=== PATIENT | female | born 1940 | race African-American/Black ===

== ENCOUNTER 2019-07-29 13:56 | Inpatient (IN) | payer MEDICARE, MEDICAID, SELFPAY ==
--- NOTE | ~2019-07-29 | XR_ITS ---
XR chest 1V portable DATE: 07/29/2019 15:22 INDICATION: Weakness. Loss of appetite. TECHNIQUE: Portable supine AP chest on 07/29/2019 at 1517 hours COMPARISON: None FINDINGS: Heart size is within normal range. There is aortic arch calcification. There is old pulmona ry granulomatous disease. The lungs are hyperinflated suggesting COPD. The elderly chest can simulate this appearance. No pulmo nary infiltrate or consolidation, pleural effusion or pulmonary vascular congestion or pneumothorax. Incidentally noted is a fracture deformity of L1 vertebral body. Mild fracture deformities of the upp er thoracic spine are not excluded on this limited view. There is diffuse osteopenia. IMPRESSION: No active pulmonary disease Aortic atherosclerosis Diffuse osteopenia Likely chronic fracture deformity of L1; additional spinal fractures are not excluded. Reviewed, dictated and finalized at location A. IMPRESSION: No active pulmonary disease Aortic atherosclerosis Diffuse osteopenia Likely chronic fracture deformity of L1; additional spinal fractures are not ex cluded.
[2019-07-29 14:00] VITALS: BP 104/73; PULSE 130; RESP 29; TEMP 37.3; O2SAT 96
[2019-07-29] MEDS: LACTATED RINGERS 1,000 ML 999 ML (14:28)
--- NOTE | 2019-07-29 14:35 | ECG_ITS ---
Measurements Intervals [place] Rate: 112 P: 89 NM: 115 QRS: 76 QRSD: 88 T: -81 QT: 323 QTc: 441 Interpretive Statements SINUS TACHYCARDIA WITH SHORT NM INTERVAL POSSIBLE LEFT ATRIAL ENLARGEMENT LEFT VENTRICULAR HYPERTROPHY AND ST-T CHANGE ST-T WAVE ABNORMALITY IN INFERIOR LEADS- CONSIDER ISCHEMIA BASELINE WANDER- I, II, AVR, AVL, AVF, V1-V6 ABNORMAL ECG Electronically Signed On 07-29-2019 16:20:25 CDT by Adis Beavers D.O.
--- NOTE | 2019-07-29 14:36 | ED.WEAKNESS ---
HPI - Weakness General Chief complaint: Weakness Stated complaint: WEAKNESS Time Seen by Provider: 07/29/19 14:20 Source: RN notes reviewed Mode of arrival: EMS Limitations: clinical condition History of Present Illness HPI Narrative: Patient is a 79-year-old female who resides in local group home sent in for weakness. Reportedly patient has not been eating or drinking for the last few days. She is normally oriented only to self due to history of dementia. Patient reportedly is able to walk with assistance normally, but has not gotten out of bed the last few days. Nursing staff reported to emergency department nurse that patient refused to be swabbed for COVID-19, which group home is currently seeing an outbreak of cases. Patient nonverbal and not providing any history. MD Complaint: generalized weakness Location: generalized Related Data Home Medications Medication Instructions Recorded Confirmed acetaminophen 650 mg PO Q6H PRN 07/29/19 07/29/19 apixaban [Eliquis] 2.5 mg PO BID 07/29/19 07/29/19 bisacodyl 10 mg PO DAILY PRN 07/29/19 07/29/19 cholecalciferol (vitamin D3) 2,000 unit PO BID 07/29/19 07/29/19 [Vitamin D3] donepezil [Aricept] 10 mg PO HS 07/29/19 07/29/19 famotidine 20 mg PO BID 07/29/19 07/29/19 lisinopril 20 mg PO DAILY 07/29/19 07/29/19 memantine [Namenda] 10 mg PO BID 07/29/19 07/29/19 metoprolol tartrate 12.5 mg PO BID 07/29/19 07/29/19 mirtazapine 15 mg PO HS 07/29/19 07/29/19 polyethylene glycol 3350 [Miralax] 17 g PO DAILY PRN 07/29/19 07/29/19 sennosides-docusate sodium 1 tab-cap PO BID 07/29/19 07/29/19 [Senna-S] Allergies Allergy/AdvReac Type Severity Reaction Status Date / Time No Known Allergies Allergy Verified 07/29/19 14:31 Review of Systems Review of Systems: ROS unobtainable: Yes unobtainable due to mental status PMFSH Past Medical History Medical History (Updated 07/29/19 @ 20:36 by Dee Mann MD) Atrial fibrillation Dementia Depression GERD (gastroesophageal reflux disease) Hyperlipidemia Hypertension Pulmonary embolism Schizophrenia Vitamin D deficiency Family History Family History (Updated 07/29/19 @ 19:49 by Kita Hobbs RN) Other Unknown family medical history Social History Social History (Updated 07/29/19 @ 14:40 by Dee Mann MD) Smoking status: Never smoker Alcohol intake: never Substance use: never Living arrangements: group home Gender identity (if verbalized by the patient): Female Spiritual care concerns: No Agree to blood products: Yes Exam Const: General: cooperative, alert and ill appearing chronically Nutritional Appearance: thin Orientation/consciousness: confusion HENMT: Mouth: Yes dry mucous membranes (Lips cracked with crusting) Resp: Effort & Inspection: tachypneic Auscultation: clear to auscultation bilaterally Cardio: Rate: tachycardic Rhythm: regular rhythm GI: GI Palp: Yes Soft to palpation and No Tenderness to palpation present (GI) Auscultation: normal bowel sounds Skin: General skin exam: normal color and turgor decreased Neuro: General: confusion Speech: Other speech findings present (Neuro) (Nonverbal) Extrem: General: normal to inspection, full ROM and no clubbing, cyanosis or edema Psych: Appearance: disheveled Speech and movement: Catatonic speech present Attitude: cooperative Course Course Emergency Course: Patient extraordinarily dehydrated and in acute renal failure. Patient significantly hypernatremic due to dehydration. Patient tested for COVID-19 due to outbreak in group home where she resides and high likelihood this could be causing her generalized malaise and decreased appetite. Patient is not hypoxic and has no findings of pulmonary infiltrates at this time. Patient hydrated aggressively in the emergency department and IV fluids will be continued once admitted. Consultations Consultation #1: Case discussed with SHAHRZAD Bowen for
[2019-07-29 14:47] LABS: Basophils Percent Auto 0.2 % (0.2-1.2); Hematocrit 55.6 % (37.0-47.0); Hemoglobin 17.4 g/dL (12.0-15.0); Immature Granulocyte Absolute 0.08 K/mm3 (0.00-0.031); Immature Granulocyte Percent A 0.7 % (0-0.5); Lymphocytes Absolute Auto 1.13 K/mm3 (0.9-3.2); Lymphocytes Percent Auto 9.4 % (18.3-44.2); Mean Corpuscular HGB Conc 31.3 g/dl (32-36); Mean Corpuscular Hemoglobin 27.5 pg (26-34); Mean Platelet Volume 11.9 fl (7.4-10.4); Monocytes Absolute Auto 0.5 K/mm3 (0.1-0.6); Monocytes Percent Auto 4.5 % (2.6-8.5); Neutrophils Absolute Auto 10.3 K/mm3 (1.3-6.7); Neutrophils Percent Auto 85.2 % (45.5-73.1); Nucleated Red Blood Cells Perc 0.2 % (0.0-0.2); Platelet Count Result 155 k/mm3 (150-375); Red Blood Count 6.32 M/mm3 (4.2-5.4); Red Cell Distribution Width 15.3 % (11.5-14.5)
[2019-07-29 15:00] VITALS: BP 142/94; PULSE 110; RESP 23; O2SAT 97
[2019-07-29 15:02] LABS: Alanine Aminotransferase 43 U/L (4-35); Albumin Level 4.6 g/dL (3.5-5.1); Alkaline Phosphatase 119 U/L (38-126); Aspartate Amino Transferase 56 U/L (14-36); Bilirubin,Total 1.5 mg/dL (0.2-1.3); Blood Urea Nitrogen 106 mg/dL (7-17); Calcium 12.2 mg/dL (8.4-10.2); Carbon Dioxide 27 mmol/L (22-30); Chloride 120 mmol/L (98-107); Creatine Kinase 248 U/L (30-135); Estimated Glomerular Filt Rate 12; Glucose 125 mg/dL (65-105); Magnesium 3.4 mg/dL (1.6-2.3); Phosphorus 5.3 mg/dL (2.5-4.5); Potassium 3.9 mmol/L (3.4-5.0); Sodium 160 mmol/L (137-145)
[2019-07-29 15:09] LABS: Add Urine Microscopic? YES; Appearance Urine Clear (Clear); Bacteria Urine Trace /hpf; Bilirubin Urine Negative (Negative); Blood Urine Negative (Negative); Color Urine Amber (Yellow); Glucose Urine UA Negative (Negative); Ketones Urine Negative (Negative); Leukocyte Esterase Ur Negative LEU/UL (Negative); Nitrate Urine Negative (Negative); Protein Urine 2+ mg/dL (Negative); RBC Urine 0-2 /hpf (0-2); Specific Grav Ur 1.023 (1.001-1.035); Squamous Epithelial Cell Urine Rare /hpf (Few); WBC Urine 0-3 /hpf
[2019-07-29] MEDS: LACTATED RINGERS 1,000 ML 999 ML IV CONT (15:38)
[2019-07-29 16:12] VITALS: BP 198/99; PULSE 114; RESP 22; O2SAT 96
[2019-07-29 18:00] VITALS: BP 151/91; PULSE 126; RESP 22; TEMP 37; O2SAT 94
[2019-07-29] MEDS: LACTATED RINGERS 1,000 ML 125 ML IV CONT (18:16)
--- NOTE | 2019-07-29 19:57 | ADMGEN ---
This patient, Faby Garcia, was admitted to [facility] Surg Room 329-01. Patient/family oriented to hospital policies and general routines including ID bracelet, bed and alarms, visiting hours, pain management, procedures, bathroom and other care routines, personal items, smoking policy, room service/diet, and visiting hours. Valuables list has been completed. Information on how to activate the Rapid Response Team has been discussed. Patient/Family are encouraged to report perceived risks to care and to ask questions if they do not understand what they are told or what they should do.
[2019-07-29 20:00] VITALS: PULSE 120
[2019-07-29 20:00] LABS: Blood Urea Nitrogen 96 mg/dL (7-17); Calcium 11.2 mg/dL (8.4-10.2); Carbon Dioxide 33 mmol/L (22-30); Chloride 118 mmol/L (98-107); Creatine Kinase 317 U/L (30-135); Estimated Glomerular Filt Rate 23; Glucose 114 mg/dL (65-105); Potassium 3.9 mmol/L (3.4-5.0); Sodium 158 mmol/L (137-145)
[2019-07-29 22:00] VITALS: BP 154/83; PULSE 59; RESP 18; TEMP 36.8; O2SAT 98
--- NOTE | 2019-07-29 23:55 | PM.IMHP ---
H&P: HPI History of Present Illness Chief complaint: Weakness. Narrative: Faby Garcia is a 79-year-old female dementia, hypertension, GERD, and schizophrenia who presented to the emergency department earlier today via EMS from [facility] for evaluation of weakness. At the time of my evaluation the patient is asleep, and when I try to wake her she closes her eyes tightly and pulls the covers above her head. She does not answer questions nor is she cooperative with physical exam. As such, all of the following history is obtained via a review of her electronic medical records. According to the triage note, the patient has not been eating or drinking for the last several days and is not even gotten out of bed. She was found to be profoundly dehydrated with an acute kidney injury and significant hypernatremia. Currently she moans when I try to ask questions or examine her. She says no intelligible words. It is noted that she comes from a facility where there have been numerous positive COVID-19 cases. Review of Systems Review of Systems: Narrative: Unobtainable due to current clinical condition as detailed above. [facility] Past Medical History Medical History (Updated 07/30/19 @ 00:46 by Senait Ohara PA-C) Current use of [facility] anticoagulation Dementia Depression GERD (gastroesophageal reflux disease) Hearing loss Hyperlipidemia Hypertension Paroxysmal atrial fibrillation Pulmonary embolism Schizophrenia Vitamin D deficiency Surgical History Surgical History (Updated 07/30/19 @ 00:41 by Senait Ohara PA-C) No pertinent past surgical history Patient unable to tell me whether not she has had surgery, and will not allow me to examine her completely. Family History Family History Other Unknown family medical history Social History Social History (Updated 07/30/19 @ 00:42 by Senait Ohara PA-C) Social History: The patient lives at [facility]. At baseline she was reportedly alert orient x1, and is able to sit at the side of the bed and walk with assistance. She is listed as a full code. I do not have a surrogate decision maker listed. Uncertain whether not the patient has ever been a smoker, drinker, or user of illicit substances. Meds Home Medications and Allergies Home Medications Medication Instructions Recorded Confirmed Type acetaminophen 650 mg PO Q6H PRN 07/29/19 07/29/19 History apixaban [Eliquis] 2.5 mg PO BID 07/29/19 07/29/19 History bisacodyl 10 mg PO DAILY PRN 07/29/19 07/29/19 History cholecalciferol (vitamin D3) 2,000 unit PO BID 07/29/19 07/29/19 History [Vitamin D3] donepezil [Aricept] 10 mg PO HS 07/29/19 07/29/19 History famotidine 20 mg PO BID 07/29/19 07/29/19 History lisinopril 20 mg PO DAILY 07/29/19 07/29/19 History memantine [Namenda] 10 mg PO BID 07/29/19 07/29/19 History metoprolol tartrate 12.5 mg PO BID 07/29/19 07/29/19 History mirtazapine 15 mg PO HS 07/29/19 07/29/19 History polyethylene glycol 3350 [Miralax] 17 g PO DAILY PRN 07/29/19 07/29/19 History sennosides-docusate sodium 1 tab-cap PO BID 07/29/19 07/29/19 History [Senna-S] Allergies Allergy/AdvReac Type Severity Reaction Status Date / Time No Known Allergies Allergy Verified 07/29/19 14:31 Vital Signs Vital Signs - 24 hr 07/29/19 14:00 07/29/19 15:00 07/29/19 16:12 Temperature 99.2 F Pulse Rate 130 H 110 H 114 H Respiratory Rate 29 H 23 H 22 H Blood Pressure 104/73 142/94 H 198/99 H Pulse Oximetry 96 97 96 07/29/19 18:00 07/29/19 20:00 07/29/19 22:00 Temperature 98.6 F 98.2 F Pulse Rate 126 H 120 H 59 L Respiratory Rate 22 H 18 Blood Pressure 151/91 H 154/83 H Pulse Oximetry 94 98 Exam Narrative: Exam Narrative: General: Very thin frail elderly female lying in bed in the position. She pulls the cover over her head when I attempted to talk to her or examine he
[2019-07-30] VITALS (12 sets, daily range): BP systolic 116–156; BP diastolic 83–93; PULSE 90–111; RESP 16–18; TEMP 36.4–37; O2SAT 91–98; BMI 18.9
[2019-07-30 01:24] LABS: Blood Urea Nitrogen 82 mg/dL (7-17); Calcium 11.3 mg/dL (8.4-10.2); Carbon Dioxide 34 mmol/L (22-30); Chloride 120 mmol/L (98-107); Estimated Glomerular Filt Rate 28; Glucose 107 mg/dL (65-105); Potassium 3.5 mmol/L (3.4-5.0); Sodium 157 mmol/L (137-145)
[2019-07-30 01:36] LABS: Creatine Kinase 278 U/L (30-135)
[2019-07-30] MEDS: LACTATED RINGERS 1,000 ML 125 ML IV CONT ×3 (02:49→18:56)
[2019-07-30 04:49] LABS: Sodium 157 mmol/L (137-145)
[2019-07-30] MEDS: FAMOTIDINE 20 MG/2 ML VIAL IV PUSH ×2 (08:10→20:38)
[2019-07-30 14:01] LABS: SARS-CoV-2 RNA PCR Positive
--- NOTE | 2019-07-30 14:15 | PC.NURSE ---
Left voicemail for Dr. Packer that patients COVID test is positive.
--- NOTE | 2019-07-30 16:15 | PM.IMPN ---
Progress Note: A&P Assessment and Plan (1) Metabolic encephalopathy: Code(s): G93.41 - Metabolic encephalopathy Status: Acute Assessment and Plan: Appears to be multifactorial as result of COVID-19 infection, acute kidney injury with significant uremia, dehydration, renal failure with underlying dementia. Will continue to monitor mental status with treatment of other issues as noted below. (2) COVID-19 virus infection: Code(s): U07.1 - COVID-19 Status: Acute Assessment and Plan: Patient from facility with multiple positive COVID-19 residence. COVID-19 testing initiated through ER and is positive. Will continue isolation. (3) Severe dehydration: Code(s): E86.0 - Dehydration Status: Acute Assessment and Plan: Still significantly dehydrated but improving. Will continue IV fluids and monitor. (4) Acute renal failure: Qualifiers: Acute renal failure type: unspecified Qualified Code(s): N17.9 - Acute kidney failure, unspecified Code(s): N17.9 - Acute kidney failure, unspecified Status: Acute Assessment and Plan: Likely result profound dehydration. Creatinine has now improved to 2.10 having been 4.30 on admission. Will continue to monitor with rehydration. (5) Acute hypernatremia: Code(s): E87.0 - Hyperosmolality and hypernatremia Status: Acute Assessment and Plan: Result of dehydration. Slowly correcting with most recent sodium 157. Will continue to monitor. Adjust IV fluids if needed. (6) Elevated LFTs: Code(s): R79.89 - Other specified abnormal findings of blood chemistry Status: Acute Assessment and Plan: Mild elevation of LFTs on admission. Probably result also with dehydration. Will continue to follow for now. Consider further evaluation if worsening. (7) Dysphagia: Qualifiers: Dysphagia type: unspecified Qualified Code(s): R13.10 - Dysphagia, unspecified Code(s): R13.10 - Dysphagia, unspecified Status: Acute Assessment and Plan: Patient reported to have swallowing issues at shelter prior to current issues. Will attempt to get MBS when able. Will maintain NPO for now with IV fluids. (8) Dementia: Qualifiers: Dementia type: unspecified type Dementia behavioral disturbance: without behavioral disturbance Qualified Code(s): F03.90 - Unspecified dementia without behavioral disturbance Code(s): F03.90 - Unspecified dementia without behavioral disturbance Status: Acute Assessment and Plan: Known underlying condition. Home Namenda and Aricept currently on hold with mental status. Will continue to monitor. (9) Paroxysmal atrial fibrillation: Code(s): I48.0 - Paroxysmal atrial fibrillation Status: Acute Assessment and Plan: Presently in sinus rhythm. Metoprolol on hold with current condition. Apixaban on hold with current condition. Will continue to monitor clinically. (10) Hypertension: Qualifiers: Hypertension type: essential hypertension Qualified Code(s): I10 - Essential (primary) hypertension Code(s): I10 - Essential (primary) hypertension Status: Acute Assessment and Plan: Blood pressure reviewed on 07/30/2019 with mild elevation. Home metoprolol and lisinopril on hold with current status. Will have IV hydralazine available if becomes necessary. Will continue to monitor. (11) DVT prophylaxis: Code(s): Z29.9 - Encounter for prophylactic measures, unspecified Status: Acute Assessment and Plan: SCDs with home apixaban currently on hold due to mental status. Time Spent With Patient Time with patient: 15 - 25 minutes Subjective Date/time seen: 07/30/19 16:15 Interval history: Date of Service: 07/30/2019. Admitted with severe dehydration, acute renal failure, hypernatremia, encephalopathy. Patient with known dementia. Nurses report w
[2019-07-30 16:53] LABS: Basophils Percent Auto 0.3 % (0.2-1.2); Hematocrit 47.3 % (37.0-47.0); Hemoglobin 14.4 g/dL (12.0-15.0); Immature Granulocyte Percent A 0.9 % (0-0.5); Lymphocytes Absolute Auto 0.73 K/mm3 (0.9-3.2); Lymphocytes Percent Auto 6.8 % (18.3-44.2); Mean Corpuscular HGB Conc 30.4 g/dl (32-36); Mean Corpuscular Volume 88.6 fl (80-100); Mean Platelet Volume 12.1 fl (7.4-10.4); Monocytes Absolute Auto 0.7 K/mm3 (0.1-0.6); Monocytes Percent Auto 6.5 % (2.6-8.5); Neutrophils Absolute Auto 9.3 K/mm3 (1.3-6.7); Neutrophils Percent Auto 85.5 % (45.5-73.1); Platelet Count Result 100 k/mm3 (150-375); Red Blood Count 5.34 M/mm3 (4.2-5.4); Red Cell Distribution Width 13.9 % (11.5-14.5); White Blood Count 10.8 K/mm3 (4.5-10.0)
[2019-07-30 17:19] LABS: Alanine Aminotransferase 34 U/L (4-35); Albumin Level 3.5 g/dL (3.5-5.1); Alkaline Phosphatase 91 U/L (38-126); Aspartate Amino Transferase 51 U/L (14-36); Bilirubin,Total 1.3 mg/dL (0.2-1.3); Blood Urea Nitrogen 51 mg/dL (7-17); Calcium 10.3 mg/dL (8.4-10.2); Carbon Dioxide 30 mmol/L (22-30); Chloride 119 mmol/L (98-107); Creatine Kinase 246 U/L (30-135); Estimated CRCL calculation 31 ml/min; Estimated Glomerular Filt Rate > 60; Glucose 98 mg/dL (65-105); Magnesium 2.3 mg/dL (1.6-2.3); Phosphorus 2.2 mg/dL (2.5-4.5); Potassium 3.1 mmol/L (3.4-5.0); Sodium 155 mmol/L (137-145)
[2019-07-30 23:35] LABS: Sodium 152 mmol/L (137-145)
[2019-07-31] VITALS (12 sets, daily range): BP systolic 121–158; BP diastolic 57–93; PULSE 77–100; RESP 16–18; TEMP 36.2–37.1; O2SAT 91–98; BMI 18.9
[2019-07-31] MEDS: LACTATED RINGERS 1,000 ML 125 ML IV CONT ×3 (03:10→21:42)
[2019-07-31 05:59] LABS: Hematocrit 44.4 % (37.0-47.0); Hemoglobin 13.4 g/dL (12.0-15.0); Immature Platelet Fraction Pct 5.9 % (0.9-11.2); Mean Corpuscular HGB Conc 30.2 g/dl (32-36); Mean Corpuscular Hemoglobin 27.4 pg (26-34); Mean Corpuscular Volume 90.8 fl (80-100); Mean Platelet Volume 11.9 fl (7.4-10.4); Platelet Count Result 88 k/mm3 (150-375); Red Blood Count 4.89 M/mm3 (4.2-5.4); Red Cell Distribution Width 13.8 % (11.5-14.5); White Blood Count 8.6 K/mm3 (4.5-10.0)
[2019-07-31 06:32] LABS: Alanine Aminotransferase 28 U/L (4-35); Albumin Level 3.1 g/dL (3.5-5.1); Alkaline Phosphatase 76 U/L (38-126); Aspartate Amino Transferase 42 U/L (14-36); Bilirubin,Total 1.2 mg/dL (0.2-1.3); Blood Urea Nitrogen 38 mg/dL (7-17); Calcium 9.6 mg/dL (8.4-10.2); Carbon Dioxide 35 mmol/L (22-30); Chloride 115 mmol/L (98-107); Creatine Kinase 125 U/L (30-135); Estimated CRCL calculation 31 ml/min; Estimated Glomerular Filt Rate > 60; Glucose 94 mg/dL (65-105); Potassium 3.3 mmol/L (3.4-5.0); Sodium 152 mmol/L (137-145)
[2019-07-31] MEDS: FAMOTIDINE 20 MG/2 ML VIAL IV PUSH ×2 (08:40→21:42)
--- NOTE | 2019-07-31 13:43 | PM.IMPN ---
Progress Note: A&P Assessment and Plan (1) Metabolic encephalopathy: Code(s): G93.41 - Metabolic encephalopathy Status: Acute Assessment and Plan: Appears to be multifactorial as result of COVID-19 infection, acute kidney injury with significant uremia, dehydration, renal failure with underlying dementia. Patient with some improvement today. Will continue to monitor mental status with treatment of other issues as noted below. (2) COVID-19 virus infection: Code(s): U07.1 - COVID-19 Status: Acute Assessment and Plan: Patient from facility with multiple positive COVID-19 residence. COVID-19 testing initiated through ER and is positive. Will continue isolation. (3) Severe dehydration: Code(s): E86.0 - Dehydration Status: Acute Assessment and Plan: Still clinically dehydrated but improving. Will continue current IV fluids. Continue to monitor. (4) Hypokalemia: Code(s): E87.6 - Hypokalemia Status: Acute Assessment and Plan: Potassium 3.3 today with IV replacement given due to her condition. Will continue to monitor and replace as needed. (5) Acute renal failure: Qualifiers: Acute renal failure type: unspecified Qualified Code(s): N17.9 - Acute kidney failure, unspecified Code(s): N17.9 - Acute kidney failure, unspecified Status: Acute Assessment and Plan: Likely result profound dehydration. Creatinine 4.30 on admission. Now resolved with creatinine 0.90 today. Will continue to monitor with rehydration. (6) Acute hypernatremia: Code(s): E87.0 - Hyperosmolality and hypernatremia Status: Acute Assessment and Plan: Result of dehydration. Slowly correcting with most recent sodium 152. Will continue to monitor. Adjust IV fluids if becomes necessary. (7) Elevated LFTs: Code(s): R79.89 - Other specified abnormal findings of blood chemistry Status: Resolved Assessment and Plan: Mild elevation of LFTs on admission. Probably result was result of dehydration as now resolved. (8) Dysphagia: Qualifiers: Dysphagia type: unspecified Qualified Code(s): R13.10 - Dysphagia, unspecified Code(s): R13.10 - Dysphagia, unspecified Status: Acute Assessment and Plan: [facility]. Discussed with speech therapy. Due to COVID-19 infection, preference is for bedside swallow. Unable to the bedside swallow given current condition. Will leave NPO for now with IV fluids. (9) Dementia: Qualifiers: Dementia behavioral disturbance: without behavioral disturbance Dementia type: unspecified type Qualified Code(s): F03.90 - Unspecified dementia without behavioral disturbance Code(s): F03.90 - Unspecified dementia without behavioral disturbance Status: Acute Assessment and Plan: Known underlying condition. Continue to hold home Namenda and Aricept with current status. Will continue to monitor. (10) Paroxysmal atrial fibrillation: Code(s): I48.0 - Paroxysmal atrial fibrillation Status: Acute Assessment and Plan: Remains in sinus rhythm. Metoprolol on hold with current condition. Apixaban on hold with current condition. Will continue to monitor clinically. (11) Hypertension: Qualifiers: Hypertension type: essential hypertension Qualified Code(s): I10 - Essential (primary) hypertension Code(s): I10 - Essential (primary) hypertension Status: Acute Assessment and Plan: Blood pressure reviewed on 07/31/2019 with mild elevation but stable. Continue to hold metoprolol and lisinopril with current status. IV hydralazine available if becomes necessary. Will continue to monitor. (12) DVT prophylaxis: Code(s): Z29.9 - Encounter for prophylactic measures, unspecified Status: Acute Assessment and [place]
--- NOTE | 2019-07-31 14:46 | PCDIET ---
Nutrition screen for day three NPO complete: Full assessment complete Inadequate oral intake r/t swallowing dysfunction as evidence by NPO diet order Total intake will meet estimated kcal and protein needs of 1200kcals and 60g protein daily Goal:New goal MD notes attempt to do swallow study due to known dysphasia. Pt is NPO day three. Recommend starting PPN Clinimix E 4.25//5 +250 lipids at 40ml/hr day one, advancing to 80ml/hr day to provide 1153kcals and 82g protein to meet pt needs while PO intake is limited. Due to COVID19, recommend high dose Vitamin C at 100mg/kg body weight to aid in reducing inflammation and speeding recovery. Following Diet, PPN, wt, labs, meds every three days
[2019-07-31 22:28] LABS: Glucose Point of Care 78 (65-105)
[2019-08-01] VITALS (10 sets, daily range): BP systolic 122–156; BP diastolic 76–87; PULSE 85–100; RESP 16–18; TEMP 36.1–36.8; O2SAT 92–97
[2019-08-01 08:33] LABS: Blood Urea Nitrogen 23 mg/dL (7-17); Carbon Dioxide 34 mmol/L (22-30); Chloride 110 mmol/L (98-107); Estimated CRCL calculation 35 ml/min; Estimated Glomerular Filt Rate > 60; Glucose 91 mg/dL (65-105); Potassium 3.5 mmol/L (3.4-5.0); Sodium 146 mmol/L (137-145)
[2019-08-01] MEDS: LACTATED RINGERS 1,000 ML 125 ML IV CONT (09:51)
[2019-08-01] MEDS: FAMOTIDINE 20 MG/2 ML VIAL IV PUSH ×2 (09:51→22:07)
--- NOTE | 2019-08-01 13:32 | PM.IMPN ---
Progress Note: A&P Assessment and Plan (1) Metabolic encephalopathy: Code(s): G93.41 - Metabolic encephalopathy Status: Acute Assessment and Plan: Appears to be multifactorial as result of COVID-19 infection, acute kidney injury with significant uremia, dehydration, renal failure with underlying dementia. Patient seems a little more interactive today. Today I was able to speak with her daughter, Chrystal Scherer, who is her POA. Daughter reports patient generally will not even speak to family intends to be stubborn. She will otherwise indicate she understands with they are talking about. I did update daughter regarding current condition with slow but steady improvement. Bedside swallow attempted today but patient would not participate which is not unusual for patient per daughter. Will allow clear liquids. Continue to monitor. Anticipate return to [facility] at discharge. (2) COVID-19 virus infection: Code(s): U07.1 - COVID-19 Status: Acute Assessment and Plan: Patient from facility with multiple positive COVID-19 residence. COVID-19 testing initiated through ER and is positive. Will continue isolation. Continue supportive care. Remains on room air. (3) Severe dehydration: Code(s): E86.0 - Dehydration Status: Acute Assessment and Plan: Significantly improved. Will, however, continue IV fluids as not yet taking oral intake. Continue to monitor. (4) Acute hypernatremia: Code(s): E87.0 - Hyperosmolality and hypernatremia Status: Acute Assessment and Plan: Result of dehydration. Slowly correcting with sodium down to 146 today. Will continue to monitor with current IV fluids. (5) Dysphagia: Qualifiers: Dysphagia type: unspecified Qualified Code(s): R13.10 - Dysphagia, unspecified Code(s): R13.10 - Dysphagia, unspecified Status: Acute Assessment and Plan: Patient reported to have swallowing issues at skilled nursing prior to current issues per skilled nursing staff. Discussed with daughter today who reports patient was eating on her own prior to this admission. Bedside swallow attempted by speech therapy today but unsuccessful as patient would not cooperate. After discussion with daughter, will still allow clear liquids today. If she does well, will advance diet as tolerated. (6) Hypokalemia: Code(s): E87.6 - Hypokalemia Status: Acute Assessment and Plan: Potassium 3.5 today. Will continue to monitor and replace as needed. (7) Acute renal failure: Qualifiers: Acute renal failure type: unspecified Qualified Code(s): N17.9 - Acute kidney failure, unspecified Code(s): N17.9 - Acute kidney failure, unspecified Status: Acute Assessment and Plan: Likely result profound dehydration. Creatinine 4.30 on admission. Now resolved with creatinine and improved at 0.80 today. Will continue to monitor. (8) Hypertension: Qualifiers: Hypertension type: essential hypertension Qualified Code(s): I10 - Essential (primary) hypertension Code(s): I10 - Essential (primary) hypertension Status: Acute Assessment and Plan: Blood pressure reviewed on 08/01/2019 and now with mildly elevated readings. Continue to hold metoprolol and lisinopril today. If she does start taking clear liquids, may also be able to restart some of her oral medications. (9) Dementia: Qualifiers: Dementia behavioral disturbance: without behavioral disturbance Dementia type: unspecified type Qualified Code(s): F03.90 - Unspecified dementia without behavioral disturbance Code(s): F03.90 - Unspecified dementia without behavioral disturbance Status: Acute Assessment and Plan: Known underlying condition. Continue to hold home Namenda and Aricept today but hopefully will be able to resume once oral intake established. Will continue to monitor.
[2019-08-02] VITALS (7 sets, daily range): BP systolic 123–172; BP diastolic 67–96; PULSE 80–99; RESP 16–20; TEMP 36.3–37.2; O2SAT 93–97
[2019-08-02 06:39] LABS: Hematocrit 39.5 % (37.0-47.0); Hemoglobin 12.4 g/dL (12.0-15.0); Immature Platelet Fraction Pct 6.7 % (0.9-11.2); Mean Corpuscular HGB Conc 31.4 g/dl (32-36); Mean Corpuscular Hemoglobin 27.4 pg (26-34); Mean Corpuscular Volume 87.2 fl (80-100); Mean Platelet Volume 11.6 fl (7.4-10.4); Platelet Count Result 103 k/mm3 (150-375); Red Blood Count 4.53 M/mm3 (4.2-5.4); Red Cell Distribution Width 12.9 % (11.5-14.5); White Blood Count 4.9 K/mm3 (4.5-10.0)
[2019-08-02 06:42] LABS: Blood Urea Nitrogen 19 mg/dL (7-17); Calcium 8.4 mg/dL (8.4-10.2); Carbon Dioxide 27 mmol/L (22-30); Chloride 108 mmol/L (98-107); Estimated CRCL calculation 40 ml/min; Estimated Glomerular Filt Rate > 60; Glucose 77 mg/dL (65-105); Potassium 3.1 mmol/L (3.4-5.0); Sodium 142 mmol/L (137-145)
[2019-08-02] MEDS: FAMOTIDINE 20 MG/2 ML VIAL IV PUSH ×2 (08:50→22:43)
--- NOTE | 2019-08-02 15:30 | PM.IMPN ---
Progress Note: A&P Assessment and Plan (1) Metabolic encephalopathy: Code(s): G93.41 - Metabolic encephalopathy Status: Acute Assessment and Plan: Appears to be multifactorial as result of COVID-19 infection, acute kidney injury with significant uremia, dehydration, renal failure with underlying dementia. Patient more awake than on presentation but still nonverbal. Has been offered food but not eating. I was able to speak with her daughter, Chrystal Scherer, who is her POA, once again this afternoon and updated on patient condition. Daughter does report patient has ?shut down? in the past requiring feeding tube. Daughter believes she was actually hospitalized for 6 months at [facility] in order to stabilize her approximately 4 years ago when this happened. Bedside swallow test was attempted on 08/01/2019 but patient would not participate. Advanced to regular diet today in order to have more food options to see if this will help stimulate her desire to eat. Continue IV fluids for now. Will continue to monitor. Anticipate return to [facility] at discharge. (2) COVID-19 virus infection: Code(s): U07.1 - COVID-19 Status: Acute Assessment and Plan: Patient from facility with multiple positive COVID-19 residence. COVID-19 testing initiated through ER and is positive. Will continue isolation. Continue supportive care. Remains on room air. (3) Severe dehydration: Code(s): E86.0 - Dehydration Status: Acute Assessment and Plan: Improved with rehydration. Will continue IV fluids as patient not yet eating. Will monitor. (4) Acute hypernatremia: Code(s): E87.0 - Hyperosmolality and hypernatremia Status: Resolved Assessment and Plan: Now resolved with rehydration. Sodium down to 142 today. Continue IV fluids. Will continue to monitor. (5) Hypokalemia: Code(s): E87.6 - Hypokalemia Status: Acute Assessment and Plan: Potassium 3.1 today with IV replacement given. Will continue to monitor and replace as needed. (6) Dysphagia: Qualifiers: Dysphagia type: unspecified Qualified Code(s): R13.10 - Dysphagia, unspecified Code(s): R13.10 - Dysphagia, unspecified Status: Acute Assessment and Plan: Patient reported to have swallowing issues at [facility] prior to current issues per [facility] staff. Discussed with daughter on 08/01/2019 who reported patient was eating on her own prior to this admission. Bedside swallow attempted by speech therapy but unsuccessful as patient would not cooperate. Does have previous history of G-tube as noted above. Daughter would wish to consider G-tube if patient will not eat on her own. (7) Acute renal failure: Qualifiers: Acute renal failure type: unspecified Qualified Code(s): N17.9 - Acute kidney failure, unspecified Code(s): N17.9 - Acute kidney failure, unspecified Status: Resolved Assessment and Plan: Result profound dehydration. Creatinine 4.30 on admission. Remains resolved now after rehydration with creatinine 0.70 today. Will continue to monitor. (8) Hypertension: Qualifiers: Hypertension type: essential hypertension Qualified Code(s): I10 - Essential (primary) hypertension Code(s): I10 - Essential (primary) hypertension Status: Acute Assessment and Plan: Blood pressure reviewed on 08/02/2019 and stable. Continue to hold metoprolol and lisinopril with blood pressure stable and patient not taking other oral medication. Will continue to monitor. (9) Dementia: Qualifiers: Dementia behavioral disturbance: without behavioral disturbance Dementia type: unspecified type Qualified Code(s): F03.90 - Unspecified dementia without behavioral disturbance Code(s): F03.90 - Unspecified dementia without behavioral disturbance Status: Acute Assessment and Plan:
[2019-08-02] MEDS: LACTATED RINGERS 1,000 ML 125 ML IV CONT (18:44)
[2019-08-03 02:00] VITALS: BP 151/85; PULSE 95; RESP 18; TEMP 36.3; O2SAT 96
[2019-08-03 06:00] VITALS: BP 182/95; PULSE 91; RESP 18; TEMP 37.2; O2SAT 97
[2019-08-03] MEDS: hydrALAZINE HCL 20 MG/ML VIAL 10 MG IV PUSH (06:38)
[2019-08-03] MEDS: LACTATED RINGERS 1,000 ML 125 ML IV CONT (06:38)
[2019-08-03 06:39] VITALS: PULSE 91; RESP 18; O2SAT 97
[2019-08-03 07:10] LABS: Blood Urea Nitrogen 11 mg/dL (7-17); Calcium 8.5 mg/dL (8.4-10.2); Carbon Dioxide 32 mmol/L (22-30); Chloride 103 mmol/L (98-107); Estimated CRCL calculation 40 ml/min; Estimated Glomerular Filt Rate > 60; Glucose 91 mg/dL (65-105); Potassium 3.3 mmol/L (3.4-5.0); Sodium 139 mmol/L (137-145)
[2019-08-03 08:10] VITALS: PULSE 90
[2019-08-03] MEDS: FAMOTIDINE 20 MG/2 ML VIAL IV PUSH (08:10)
[2019-08-03 10:00] VITALS: BP 136/79; PULSE 107; RESP 18; TEMP 36.7; O2SAT 99
[2019-08-03 14:00] VITALS: BP 149/85; PULSE 93; RESP 18; TEMP 36.7; O2SAT 95
--- NOTE | 2019-08-03 14:32 | PM.DS ---
DS: Diagnosis Admitting Diagnosis Admitting Diagnosis: Acute kidney failure, unspecified Discharge Diagnosis (1) Metabolic encephalopathy: Code(s): G93.41 - Metabolic encephalopathy Status: Acute Assessment and Plan: Appears to be multifactorial as result of COVID-19 infection, acute kidney injury with significant uremia, dehydration, renal failure with underlying dementia. Patient more awake than on presentation but still nonverbal. Has been offered food but not eating. I was able to speak with her daughter, Chrystal Scherer, who is her POA, once again this afternoon and updated on patient condition. Daughter does report patient has ?shut down? in the past requiring feeding tube. Daughter believes she was actually hospitalized for 6 months at [facility] in order to stabilize her approximately 4 years ago when this happened. Bedside swallow test was attempted on 08/01/2019 but patient would not participate. Advanced to regular diet today in order to have more food options to see if this will help stimulate her desire to eat. Continue IV fluids for now. Will continue to monitor. Anticipate return to [facility] at discharge. (2) COVID-19 virus infection: Code(s): U07.1 - COVID-19 Status: Acute Assessment and Plan: Patient from facility with multiple positive COVID-19 residence. COVID-19 testing initiated through ER and is positive. Will continue isolation. Continue supportive care. Remains on room air. (3) Severe dehydration: Code(s): E86.0 - Dehydration Status: Acute Assessment and Plan: Improved with rehydration. Will continue IV fluids as patient not yet eating. Will monitor. (4) Acute hypernatremia: Code(s): E87.0 - Hyperosmolality and hypernatremia Status: Resolved Assessment and Plan: Now resolved with rehydration. Sodium down to 142 today. Continue IV fluids. Will continue to monitor. (5) Hypokalemia: Code(s): E87.6 - Hypokalemia Status: Acute Assessment and Plan: Potassium 3.1 today with IV replacement given. Will continue to monitor and replace as needed. (6) Dysphagia: Qualifiers: Dysphagia type: unspecified Qualified Code(s): R13.10 - Dysphagia, unspecified Code(s): R13.10 - Dysphagia, unspecified Status: Acute Assessment and Plan: Patient reported to have swallowing issues at residential prior to current issues per residential staff. Discussed with daughter on 08/01/2019 who reported patient was eating on her own prior to this admission. Bedside swallow attempted by speech therapy but unsuccessful as patient would not cooperate. Does have previous history of G-tube as noted above. Daughter would wish to consider G-tube if patient will not eat on her own. (7) Acute renal failure: Qualifiers: Acute renal failure type: unspecified Qualified Code(s): N17.9 - Acute kidney failure, unspecified Code(s): N17.9 - Acute kidney failure, unspecified Status: Resolved Assessment and Plan: Result profound dehydration. Creatinine 4.30 on admission. Remains resolved now after rehydration with creatinine 0.70 today. Will continue to monitor. (8) Hypertension: Qualifiers: Hypertension type: essential hypertension Qualified Code(s): I10 - Essential (primary) hypertension Code(s): I10 - Essential (primary) hypertension Status: Acute Assessment and Plan: Blood pressure reviewed on 08/02/2019 and stable. Continue to hold metoprolol and lisinopril with blood pressure stable and patient not taking other oral medication. Will continue to monitor. (9) Dementia: Qualifiers: Dementia type: unspecified type Dementia behavioral disturbance: without behavioral disturbance Qualified Code(s): F03.90 - Unspecified dementia without behavioral disturbance Code(s): F03.90 - Unspecified dementia witho
--- NOTE | 2019-08-03 15:39 | PCDIET ---
Nutrition Follow-Up Complete: Inadequate oral intake r/t swallowing dysfunction as evidence by NPO diet order Total intake will meet estimated kcal and protein needs of 1200kcals and 60g protein daily Goal:goal not met, continue goal Pt current nutrition is Regular Nutrition recommendation: Agree Last recorded weight is 44 kg (no new wt, recommend new wt) Bowel Motility: Labs Reviewed:William 3.3 Meds Noted:Heladio Additional Notes: Pt with only one intake at 10% today. Remeron noted. Recommend nutritional supplements for 30days after d/c due to low body wt, poor intake. Plans for d/c today.
== END 2019-08-03 17:48 | DRG 177 ==
LOC: ANHED 15:41 → ANH3MEDSUR 17:43
PROVIDERS: Hospitalist; Physician Assistant; Admitting Provider Internal Medicine; Emergency Provider Emergency Medicine; PCP Family Medicine; Visit Provider Family Medicine
DX: U07.1 COVID-19 (principal); G93.41 Metabolic encephalopathy; N17.9 Acute kidney failure, unspecified; E87.0 Hyperosmolality and hypernatremia; E86.0 Dehydration; E87.6 Hypokalemia; R13.10 Dysphagia, unspecified; F03.90 Unspecified dementia, unspecified severity, without behavioral disturbance, psychotic disturbance, mood disturbance, and anxiety; I10 Essential (primary) hypertension; I48.0 Paroxysmal atrial fibrillation; R79.89 Other specified abnormal findings of blood chemistry; K21.9 Gastro-esophageal reflux disease without esophagitis; E55.9 Vitamin D deficiency, unspecified; F20.9 Schizophrenia, unspecified; E78.5 Hyperlipidemia, unspecified; F32.9 Major depressive disorder, single episode, unspecified; Z86.711 Personal history of pulmonary embolism; Z79.01 Long term (current) use of anticoagulants
CPT/HCPCS: 36415; 51701; 71045; 80048; 80053; 81001; 82550; 83735; 84100; 84295; 85025; 85027; 85055; 87635; 92610; 93005; 96360; 99291; A9270; C9803; J0360; J3480; J7120; U0003

== ENCOUNTER 2019-08-15 15:23 | Inpatient (IN) | payer MEDICARE, MEDICAID, SELFPAY ==
[2019-08-15] VITALS (8 sets, daily range): BP systolic 128–155; BP diastolic 82–106; PULSE 106–122; RESP 16–30; TEMP 36.4–36.7; O2SAT 98–100; BMI 17.6
--- NOTE | ~2019-08-15 | XR_ITS ---
EXAMINATION: XR chest 1V portable EXAM DATE: 08/15/2019 16:20 INDICATION: Transient alteration of awareness. TECHNIQUE: Portable AP frontal chest x-ray was obtained. Comparison is made to prior examination from 07/29/2019. FINDINGS: Mild hyperinflation. Cardiomediastinal silhouette is normal. Scattered lung granulomas. The lungs are otherwise clear. There is no pneumothorax suspected. There are no pleural effusions. There is aortic arteriosclerosis. The bones are osteopenic. There are bony degenerative changes. IMPRESSION: 1. No acute cardiopulmonary findings. Reviewed, dictated and finalized at location A.
--- NOTE | 2019-08-15 15:46 | ECG_ITS ---
Measurements Intervals [place] Rate: 120 P: 92 ND: 116 QRS: 86 QRSD: 93 T: 268 QT: 321 QTc: 455 Interpretive Statements SINUS TACHYCARDIA WITH SHORT ND INTERVAL ATRIAL PREMATURE COMPLEX LEFT VENTRICULAR HYPERTROPHY AND ST-T CHANGE ST-T WAVE ABNORMALITY IN ANTEROLAT/INF LEADS- CONSIDER ISCHEMIA BASELINE WANDER- I, II, AVR, AVL, AVF, V1 ABNORMAL ECG Electronically Signed On 08-16-2019 8:04:53 CDT by Adis Beavers D.O.
--- NOTE | 2019-08-15 16:05 | ED.GENADULT ---
HPI - General Adult General Chief complaint: Unspecified Stated complaint: ams History of Present Illness HPI narrative: Patient presents via EMS from [facility]. She is noted to be COVID positive, and was admitted here couple weeks ago. She has since deteriorated, and now is not eating or drinking. Her family wants her to be full code. She is known to be deaf. Related Data Home Medications Medication Instructions Recorded Confirmed acetaminophen 650 mg PO Q6H PRN 07/29/19 07/29/19 bisacodyl 10 mg PO DAILY PRN 07/29/19 07/29/19 famotidine 20 mg PO BID 07/29/19 07/29/19 lisinopril 20 mg PO DAILY 07/29/19 07/29/19 metoprolol tartrate 12.5 mg PO BID 07/29/19 07/29/19 mirtazapine 15 mg PO HS 07/29/19 07/29/19 polyethylene glycol 3350 [Miralax] 17 g PO DAILY PRN 07/29/19 07/29/19 aspirin 81 mg PO DAILY 08/15/19 Allergies Allergy/AdvReac Type Severity Reaction Status Date / Time No Known Allergies Allergy Verified 07/29/19 14:31 Review of Systems Review of Systems: Narrative: Unable to obtain a review of systems since she does not speak. [facility] Past Medical History Medical History Current use of exterminator helper anticoagulation Dementia Depression GERD (gastroesophageal reflux disease) Hearing loss Hyperlipidemia Hypertension Paroxysmal atrial fibrillation Pulmonary embolism Schizophrenia Vitamin D deficiency Surgical History Surgical History (Updated 07/30/19 @ 00:41 by Senait Ohara PA-C) No pertinent past surgical history Patient unable to tell me whether not she has had surgery, and will not allow me to examine her completely. Social History Social History Social History: The patient lives at [facility]. At baseline she was reportedly alert orient x1, and is able to sit at the side of the bed and walk with assistance. She is listed as a full code. I do not have a surrogate decision maker listed. Uncertain whether not the patient has ever been a smoker, drinker, or user of illicit substances. Gender identity (if verbalized by the patient): Female Spiritual care concerns: No Exam Narrative: Exam Narrative: GENERAL: Cachectic. Hair knotted and tangled. bald on the top. HEAD: Normocephalic, atraumatic. EYES: Will not open her eyes ENT: Nares clear, no rhinorrhea or epistaxis. Mucous membranes dry. NECK: Supple. CHEST: Clear to auscultation. No respiratory distress. HEART: Tachycardic no murmur heard. Normal peripheral pulses. ABDOMEN: Soft, nontender, nondistended, normal active bowel sounds. Scaphoid EXTREMITIES: Normal range of motion. No edema. SKIN: Warm, dry, no rash. NEURO: No focal deficits. Responds only to moving her body. PSYCH: Flat affect no verbal response.. Course Vital Signs Vital signs: Vital Signs Temperature 98 F 08/15/19 15:15 Pulse Rate 122 H 08/15/19 15:15 Respiratory Rate 30 H 08/15/19 15:15 Blood Pressure 128/91 H 08/15/19 15:15 Pulse Oximetry 99 08/15/19 15:15 Temperature 98 F 08/15/19 15:15 Pulse Rate 116 H 08/15/19 18:06 Respiratory Rate 26 H 08/15/19 18:06 Blood Pressure 141/106 H 08/15/19 18:06 Pulse Oximetry 98 08/15/19 18:06 Medical Decision Making Vital Signs Vital Signs: Vital Signs Temperature 98 F 08/15/19 15:15 Pulse Rate 122 H 08/15/19 15:15 Respiratory Rate 30 H 08/15/19 15:15 Blood Pressure 128/91 H 08/15/19 15:15 Pulse Oximetry 99 08/15/19 15:15 Temperature 98 F 08/15/19 15:15 Pulse Rate 116 H 08/15/19 18:06 Respiratory Rate 26 H 08/15/19 18:06 Blood Pressure 141/106 H 08/15/19 18:06 Pulse Oximetry 98 08/15/19 18:06 Lab Data Result diagrams: 08/15/19 16:03 08/15/19 16:03 Labs: Lab Results 08/15/19 08/15/19 08/15/19 Range/Units 16:03 16:03 16:03 WBC 8.0 (4.5-10.0) K/mm3 RBC 6.21 H (4.2-5
[2019-08-15 16:17] LABS: Basophils Percent Auto 0.1 % (0.2-1.2); Hematocrit 55.6 % (37.0-47.0); Hemoglobin 17.1 g/dL (12.0-15.0); Immature Granulocyte Absolute 0.02 K/mm3 (0.00-0.031); Immature Granulocyte Percent A 0.2 % (0-0.5); Immature Platelet Fraction Pct 2.8 % (0.9-11.2); Lymphocytes Percent Auto 13.7 % (18.3-44.2); Mean Corpuscular HGB Conc 30.8 g/dl (32-36); Mean Corpuscular Hemoglobin 27.5 pg (26-34); Mean Corpuscular Volume 89.5 fl (80-100); Mean Platelet Volume 11.3 fl (7.4-10.4); Monocytes Absolute Auto 0.4 K/mm3 (0.1-0.6); Monocytes Percent Auto 4.5 % (2.6-8.5); Neutrophils Absolute Auto 6.5 K/mm3 (1.3-6.7); Neutrophils Percent Auto 81.5 % (45.5-73.1); Platelet Count Result 187 k/mm3 (150-375); Red Blood Count 6.21 M/mm3 (4.2-5.4); Red Cell Distribution Width 16.4 % (11.5-14.5)
[2019-08-15 16:21] LABS: Add Urine Microscopic? YES; Appearance Urine Cloudy (Clear); Bacteria Urine Trace /hpf; Bilirubin Urine 1+ (Negative); Blood Urine 2+ (Negative); Glucose Urine UA Negative (Negative); Ketones Urine Trace mg/dL (Negative); Leukocyte Esterase Ur 1+ LEU/UL (Negative); Mucus Urine Rare /lpf; Nitrate Urine Negative (Negative); Protein Urine 3+ mg/dL (Negative); RBC Urine >75 /hpf (0-2); Specific Grav Ur 1.017 (1.001-1.035); Squamous Epithelial Cell Urine Rare /hpf (Few); WBC Urine >75 /hpf
[2019-08-15 16:24] LABS: Color Urine Dark Amber (Yellow)
[2019-08-15 16:27] LABS: Alanine Aminotransferase 32 U/L (4-35); Albumin Level 4.4 g/dL (3.5-5.1); Alkaline Phosphatase 122 U/L (38-126); Aspartate Amino Transferase 41 U/L (14-36); Bilirubin,Total 2.4 mg/dL (0.2-1.3); Blood Urea Nitrogen 77 mg/dL (7-17); Carbon Dioxide 35 mmol/L (22-30); Chloride 115 mmol/L (98-107); Estimated CRCL calculation 19 ml/min; Estimated Glomerular Filt Rate 38; Glucose 123 mg/dL (65-105); Potassium 3.6 mmol/L (3.4-5.0); Sodium 159 mmol/L (137-145)
[2019-08-15] MEDS: DEXTROSE 5%/0.45% SOD CHL 1,000 ML 100 ML IV CONT (16:54)
--- NOTE | 2019-08-15 18:20 | PC.NURSE ---
This patient, Faby Bobby, was admitted to [facility] Room 330-01. Patient/family oriented to hospital policies and general routines including ID bracelet, bed and alarms, visiting hours, pain management, procedures, bathroom and other care routines, personal items, smoking policy, room service/diet, and visiting hours. Valuables list has been completed. Information on how to activate the Rapid Response Team has been discussed. Patient/Family are encouraged to report perceived risks to care and to ask questions if they do not understand what they are told or what they should do.
[2019-08-16] VITALS (12 sets, daily range): BP systolic 113–168; BP diastolic 66–82; PULSE 91–113; RESP 14–22; TEMP 36.1–36.7; O2SAT 90–97
--- NOTE | 2019-08-16 00:06 | PM.IMHP ---
H&P: HPI History of Present Illness Chief complaint: Covid-19, Hypernatremia, Dehydration, Renal Fail Narrative: Faby Bobby is a 79 year old female who [facility] The patient was admitted here on 07/29/2019 with acute hyponatremia she has a history of dementia, hypertension, and schizophrenia. She has some generalized weakness at that time. The patient had a poor appetite and had not been eating or drinking for several days. She was very dehydrated and had acute kidney injury at that time. She came from a assisted that has COVID outbreak patient was found to be COVID positive on 07/29/2019. The patient is not eating or drinking very well she is only 45 kg. She is known to be deaf. Patient remains a full code. This was discussed with the family and they still continue with the full code status. Patient was found to be dehydrated her H&H is elevated. Blood pressure is elevated as well. I am not sure if she was able to take her medications. Patient's sodium was noted to be 159. Her creatinine 1.6. No acute cardiopulmonary findings. On IV fluids. Was found have a UTI and started on Rocephin. Date of service 08/15/2019. Review of Systems Review of Systems: All systems reviewed & are unremarkable except as noted in HPI and below ROS unobtainable: Yes unobtainable due to mental status Constitutional: Constitutional: Reports as per HPI and Reports no additional constitutional complaints Eyes: Eyes: Reports as per HPI and Reports no additional eye complaints ENT: Reports system reviewed and no additional complaints, except as documented and Reports Normal hearing present Cardiovascular: Cardiovascular: Reports no additional cardiovascular complaints Respiratory: Respiratory: Reports no additional respiratory complaints and Reports no additional respiratory complaints Gastrointestinal: Gastrointestinal: Reports as per HPI and Reports no additional gastrointestinal complaints Musculoskeletal: Musculoskeletal: Reports no additional musculoskeletal complaints Integumentary/Breasts: Skin/Breast: Reports system reviewed and no additional complaints, except as docu and Reports as per HPI Neurologic: Reports system reviewed and no additional complaints, except as documented, Reports as per HPI and Reports Normal hearing present Psychiatric: Psychiatric: Reports no additional psychiatric complaints and Reports as per HPI Endocrine: Endocrine: Reports no additional endocrine complaints Hematologic/Lymphatic: Hematologic/Lymphatic: Reports no additional hematologic/lymphatic complaints Allergic/Immunologic: Allergic/Immunologic: Reports no additional allergic/immunologic complaints [facility] Past Medical History Medical History (Updated 08/16/19 @ 00:25 by Kathya Braun NP) Atrial fibrillation Paroxysmal Current use of intermediate school teacher anticoagulation Dementia Depression GERD (gastroesophageal reflux disease) Hearing loss Hyperlipidemia Hypertension Hypokalemia Paroxysmal atrial fibrillation Pulmonary embolism Schizophrenia Suspected COVID-19 virus infection Vitamin D deficiency Surgical History Surgical History No pertinent past surgical history Patient unable to tell me whether not she has had surgery, and will not allow me to examine her completely. Family History Family History Other Unknown family medical history Social History Social History Social History: The patient lives at [facility]. At baseline she was reportedly alert orient x1, and is able to sit at the side of the bed and walk with assistance. She is listed as a full code. I do not have a surrogate decision maker listed. Uncertain whether not the patient has ever been a smoker, drinker, or user of illicit substances. Smoking status:
[2019-08-16 01:46] LABS: Blood Urea Nitrogen 77 mg/dL (7-17); Calcium 10.3 mg/dL (8.4-10.2); Carbon Dioxide 33 mmol/L (22-30); Chloride 115 mmol/L (98-107); Estimated CRCL calculation 22 ml/min; Estimated Glomerular Filt Rate 53; Glucose 176 mg/dL (65-105); Potassium 3.9 mmol/L (3.4-5.0); Sodium 152 mmol/L (137-145)
[2019-08-16] MEDS: DEXTROSE 5%/0.45% SOD CHL 1,000 ML 100 ML IV CONT ×2 (03:45→17:35)
[2019-08-16 09:17] LABS: Basophils Percent Auto 0.1 % (0.2-1.2); Hematocrit 46.4 % (37.0-47.0); Hemoglobin 14.5 g/dL (12.0-15.0); Immature Granulocyte Absolute 0.06 K/mm3 (0.00-0.031); Immature Granulocyte Percent A 0.5 % (0-0.5); Immature Platelet Fraction Pct 2.7 % (0.9-11.2); Lymphocytes Percent Auto 5.5 % (18.3-44.2); Mean Corpuscular HGB Conc 31.3 g/dl (32-36); Mean Corpuscular Hemoglobin 27.7 pg (26-34); Mean Corpuscular Volume 88.7 fl (80-100); Monocytes Absolute Auto 0.5 K/mm3 (0.1-0.6); Monocytes Percent Auto 4.8 % (2.6-8.5); Neutrophils Absolute Auto 9.8 K/mm3 (1.3-6.7); Neutrophils Percent Auto 89.1 % (45.5-73.1); Nucleated Red Blood Cells Perc 0.2 % (0.0-0.2); Platelet Count Result 129 k/mm3 (150-375); Red Blood Count 5.23 M/mm3 (4.2-5.4); Red Cell Distribution Width 14.1 % (11.5-14.5)
--- NOTE | 2019-08-16 09:21 | PM.IMPN ---
Progress Note: A&P Assessment and Plan (1) UTI (urinary tract infection): Code(s): N39.0 - Urinary tract infection, site not specified Status: Acute Assessment and Plan: UA suspicious for UTI. UC and BCs pending. Possible etiology for altered mental status Continue with ceftriaxone for now Tailor antibiotics to cultures monitor for improvement in mental status (2) Hypernatremia: Code(s): E87.0 - Hyperosmolality and hypernatremia Status: Acute Assessment and Plan: Na 152; improvement with IVF. Likely due to severe dehydration. Recheck BMP tomorrow Continue with IV fluids. Monitor for improvement in mental status (3) Acute renal failure: Qualifiers: Acute renal failure type: unspecified Qualified Code(s): N17.9 - Acute kidney failure, unspecified Code(s): N17.9 - Acute kidney failure, unspecified Status: Resolved Assessment and Plan: Due to dehydration. Patient has had poor oral intake. She has end-stage dementia. Will continue IVF for rehydration recheck her renal function the morning. Discussed with daughter/TYRONE Jarrell about her status and she will be discussing with family as to what their wishes are should her condition not change or worsen in the next few days. Please see above in the HPI for details on discussion (4) Paroxysmal atrial fibrillation: Code(s): I48.0 - Paroxysmal atrial fibrillation Status: Acute Assessment and Plan: HR in 90s today. She is not on any anticoagulation. Will continue her PO metoprolol for now, but if she is not tolerating her PO meds, will consider IV lopressor if her HR increases Monitor closely; instructed nursing to inform me of any telemetry changes/increased HR (5) COVID-19 virus infection: Code(s): U07.1 - COVID-19 Status: Acute Assessment and Plan: The patient was tested at the end of last month and was found to be positive. She is currently in isolation. Satting in 90s on RA. CXR unremarkable Monitor closely Supportive care with tylenol for fevers and IVF for hydration Continue isolation (6) Dysphagia: Qualifiers: Dysphagia type: unspecified Qualified Code(s): R13.10 - Dysphagia, unspecified Code(s): R13.10 - Dysphagia, unspecified Status: Acute Assessment and Plan: Most likely related to her dementia. Patient has had tube feedings in the past and was discussed with her daughter, as above. Her bedside swallow study last admission was incomplete and was unsuccessful as the patient would not cooperate. Recommended discussing with family on how aggressive they wish to be in her further care should she not improve. She will be getting back to me on whether they decide for comfort care vs tube feedings again. She is aware of her overall declining condition. (7) Hypertension: Qualifiers: Hypertension type: essential hypertension Qualified Code(s): I10 - Essential (primary) hypertension Code(s): I10 - Essential (primary) hypertension Status: Chronic Assessment and Plan: BP 110s sys Holding lisinopril due to her acute renal failure. Continue with metoprolol if able to tolerate meds (8) Elevated LFTs: Code(s): R79.89 - Other specified abnormal findings of blood chemistry Status: Resolved Assessment and Plan: Could be related to covid 19 possibly. Bilirubin is also elevated, but improving Will continue to monitor (9) Severe dehydration: Code(s): E86.0 - Dehydration Status: Acute Assessment and Plan: Continue to hydrate the patient with IVF Encourage PO if men
[2019-08-16 09:49] LABS: Alanine Aminotransferase 24 U/L (4-35); Albumin Level 3.4 g/dL (3.5-5.1); Alkaline Phosphatase 84 U/L (38-126); Aspartate Amino Transferase 33 U/L (14-36); Bilirubin,Total 1.5 mg/dL (0.2-1.3); Blood Urea Nitrogen 67 mg/dL (7-17); CRP 0.8 mg/dL (<1.0); Calcium 9.5 mg/dL (8.4-10.2); Carbon Dioxide 26 mmol/L (22-30); Chloride 117 mmol/L (98-107); Estimated CRCL calculation 24 ml/min; Estimated Glomerular Filt Rate 58; Glucose 193 mg/dL (65-105); Lipase 286 U/L (23-300); Magnesium 2.4 mg/dL (1.6-2.3); Potassium 2.8 mmol/L (3.4-5.0); Sodium 151 mmol/L (137-145)
[2019-08-16 10:13] LABS: Thyroid Stimulating Hormone Reflex 0.637 uIU/mL (0.465-4.68)
[2019-08-16 16:07] LABS: Glucose Point of Care 219 (65-105)
[2019-08-16 16:07] LABS: Glucose Point of Care 164 (65-105)
[2019-08-16 17:23] LABS: Glucose Point of Care 191 (65-105)
[2019-08-16 22:01] LABS: Glucose Point of Care 128 (65-105)
[2019-08-17] VITALS (11 sets, daily range): BP systolic 120–168; BP diastolic 77–87; PULSE 75–102; RESP 20–22; TEMP 36.5–36.9; O2SAT 92–97; BMI 17.6
[2019-08-17] MEDS: DEXTROSE 5%/0.45% SOD CHL 1,000 ML 100 ML IV CONT (05:09)
[2019-08-17 05:51] LABS: Glucose Point of Care 118 (65-105)
[2019-08-17 08:33] LABS: Basophils Percent Auto 0.2 % (0.2-1.2); Hematocrit 40.4 % (37.0-47.0); Hemoglobin 12.9 g/dL (12.0-15.0); Immature Granulocyte Percent A 0.6 % (0-0.5); Immature Platelet Fraction Pct 3.8 % (0.9-11.2); Lymphocytes Absolute Auto 1.01 K/mm3 (0.9-3.2); Lymphocytes Percent Auto 6.4 % (18.3-44.2); Mean Corpuscular HGB Conc 31.9 g/dl (32-36); Mean Corpuscular Hemoglobin 28.2 pg (26-34); Mean Corpuscular Volume 88.2 fl (80-100); Mean Platelet Volume 11.4 fl (7.4-10.4); Monocytes Absolute Auto 0.3 K/mm3 (0.1-0.6); Monocytes Percent Auto 2.1 % (2.6-8.5); Neutrophils Absolute Auto 14.4 K/mm3 (1.3-6.7); Neutrophils Percent Auto 90.7 % (45.5-73.1); Nucleated Red Blood Cells Perc 0.2 % (0.0-0.2); Platelet Count Result 94 k/mm3 (150-375); Red Blood Count 4.58 M/mm3 (4.2-5.4); Red Cell Distribution Width 14.1 % (11.5-14.5); White Blood Count 15.8 K/mm3 (4.5-10.0)
[2019-08-17 08:57] LABS: Alanine Aminotransferase 31 U/L (4-35); Alkaline Phosphatase 81 U/L (38-126); Aspartate Amino Transferase 40 U/L (14-36); Bilirubin,Total 1.1 mg/dL (0.2-1.3); Blood Urea Nitrogen 36 mg/dL (7-17); Calcium 9.1 mg/dL (8.4-10.2); Carbon Dioxide 26 mmol/L (22-30); Chloride 114 mmol/L (98-107); Estimated CRCL calculation 33 ml/min; Estimated Glomerular Filt Rate > 60; Glucose 131 mg/dL (65-105); Potassium 3.2 mmol/L (3.4-5.0); Sodium 146 mmol/L (137-145)
[2019-08-17 09:40] LABS: Glucose Point of Care 129 (65-105)
--- NOTE | 2019-08-17 12:17 | PM.IMPN ---
Progress Note: A&P Assessment and Plan (1) UTI (urinary tract infection): Code(s): N39.0 - Urinary tract infection, site not specified Status: Ruled-out Assessment and Plan: UA suspicious for UTI, although UC showed growth of skin contaminates. BC negative to date x 2. UTI unlikely given UC results Will d/c Rocephin, although continue IVF monitor for improvement in mental status (2) Hypernatremia: Code(s): E87.0 - Hyperosmolality and hypernatremia Status: Acute Assessment and Plan: Na 146; improvement with IVF. Likely due to severe dehydration. Recheck BMP tomorrow if still able to draw labs Continue with IV fluids. Monitor for improvement in mental status (3) Acute renal failure: Qualifiers: Acute renal failure type: unspecified Qualified Code(s): N17.9 - Acute kidney failure, unspecified Code(s): N17.9 - Acute kidney failure, unspecified Status: Resolved Assessment and Plan: Due to dehydration. Cr now to 0.80 this morning; appears to have resolved/resolving. Patient has had poor oral intake. She has end-stage dementia and is PLATINUM Will continue IVF for rehydration recheck her renal function the morning. (4) Paroxysmal atrial fibrillation: Code(s): I48.0 - Paroxysmal atrial fibrillation Status: Acute Assessment and Plan: HR low 100s today. She is not on any anticoagulation. Will continue her PO metoprolol for now, but if she is not tolerating her PO meds, will consider IV lopressor if her HR increases Monitor closely; instructed nursing to inform me of any telemetry changes/increased HR (5) COVID-19 virus infection: Code(s): U07.1 - COVID-19 Status: Acute Assessment and Plan: The patient was tested at the end of last month and was found to be positive. She is currently in isolation. Satting in 90s on RA. CXR unremarkable Monitor closely Supportive care with tylenol for fevers and IVF for hydration Continue isolation (6) Dysphagia: Qualifiers: Dysphagia type: unspecified Qualified Code(s): R13.10 - Dysphagia, unspecified Code(s): R13.10 - Dysphagia, unspecified Status: Acute Assessment and Plan: Most likely related to her dementia. Patient has had tube feedings in the past and was discussed with her daughter, as above. Her bedside swallow study last admission was incomplete and was unsuccessful as the patient would not cooperate. Recommended discussing with family on how aggressive they wish to be in her further care should she not improve. She will be getting back to me on whether they decide for comfort care vs tube feedings again. She is aware of her overall declining condition. (7) Hypertension: Qualifiers: Hypertension type: essential hypertension Qualified Code(s): I10 - Essential (primary) hypertension Code(s): I10 - Essential (primary) hypertension Status: Chronic Assessment and Plan: BP 120s sys Holding lisinopril due to her acute renal failure. Continue with metoprolol if able to tolerate meds (8) Elevated LFTs: Code(s): R79.89 - Other specified abnormal findings of blood chemistry Status: Resolved Assessment and Plan: Could be related to covid 19 possibly. AST 40. Of note, Bilirubin now WNL Will continue to monitor (9) Severe dehydration: Code(s): E86.0 - Dehydration Status: Acute Assessment and Plan: Continue to hydrate the patient with IVF Encourage PO if mental status improves (10) Dementia: Qualifiers: Dementia type: unspecifi
[2019-08-17 14:00] LABS: Glucose Point of Care 131 (65-105)
--- NOTE | 2019-08-17 16:07 | PM.DS ---
DS: Diagnosis Admitting Diagnosis Admitting Diagnosis: Urinary tract infection, site not specified Discharge Diagnosis (1) Dysphagia: Qualifiers: Dysphagia type: unspecified Qualified Code(s): R13.10 - Dysphagia, unspecified Code(s): R13.10 - Dysphagia, unspecified Status: Acute Assessment and Plan: Most likely related to her dementia. Patient has had tube feedings in the past and was discussed with her daughter, as above. Her bedside swallow study last admission was incomplete and was unsuccessful as the patient would not cooperate. Recommended discussing with family on how aggressive they wish to be in her further care should she not improve. She will be getting back to me on whether they decide for comfort care vs tube feedings again. She is aware of her overall declining condition. Update Family wished to proceed with hospice. Patient placed on DNR status and [facility] and plan will be to discharge to inpatient hospice under their service. Consents signed this afternoon. (2) Acute renal failure: Qualifiers: Acute renal failure type: unspecified Qualified Code(s): N17.9 - Acute kidney failure, unspecified Code(s): N17.9 - Acute kidney failure, unspecified Status: Resolved Assessment and Plan: Due to dehydration. Cr now to 0.80 this morning; appears to have resolved/resolving. Patient has had poor oral intake. She has end-stage dementia and is WILTON Will continue IVF for rehydration recheck her renal function the morning. (3) Hypernatremia: Code(s): E87.0 - Hyperosmolality and hypernatremia Status: Acute Assessment and Plan: Na 146; improvement with IVF. Likely due to severe dehydration. Recheck BMP tomorrow if still able to draw labs Continue with IV fluids. Monitor for improvement in mental status (4) UTI (urinary tract infection): Code(s): N39.0 - Urinary tract infection, site not specified Status: Ruled-out Assessment and Plan: UA suspicious for UTI, although UC showed growth of skin contaminates. BC negative to date x 2. UTI unlikely given UC results Will d/c Rocephin, although continue IVF monitor for improvement in mental status (5) Paroxysmal atrial fibrillation: Code(s): I48.0 - Paroxysmal atrial fibrillation Status: Acute Assessment and Plan: HR low 100s today. She is not on any anticoagulation. Will continue her PO metoprolol for now, but if she is not tolerating her PO meds, will consider IV lopressor if her HR increases Monitor closely; instructed nursing to inform me of any telemetry changes/increased HR (6) COVID-19 virus infection: Code(s): U07.1 - COVID-19 Status: Acute Assessment and Plan: The patient was tested at the end of last month and was found to be positive. She is currently in isolation. Satting in 90s on RA. CXR unremarkable Monitor closely Supportive care with tylenol for fevers and IVF for hydration Continue isolation (7) Hypertension: Qualifiers: Hypertension type: essential hypertension Qualified Code(s): I10 - Essential (primary) hypertension Code(s): I10 - Essential (primary) hypertension Status: Chronic Assessment and Plan: BP 120s sys Holding lisinopril due to her acute renal failure. Continue with metoprolol if able to tolerate meds (8) Elevated LFTs: Code(s): R79.89 - Other specified abnormal findings of blood chemistry Status: Resolved Assessment and Plan: Could be related to covid 19 possibly. AST 40. Of note, Bilirubin now WNL Will continue to monitor
== END 2019-08-17 20:08 | disposition hospice, inpatient (51) | DRG 178 ==
LOC: ANHED 17:59 → ANH3MEDSUR 19:42
PROVIDERS: Nurse Practitioner; Admitting Provider Hospitalist; Emergency Provider Emergency Medicine; PCP Family Medicine; Visit Provider Physician Assistant
DX: U07.1 COVID-19 (principal); N17.9 Acute kidney failure, unspecified; E87.0 Hyperosmolality and hypernatremia; R64 Cachexia; Z68.1 Body mass index [BMI] 19.9 or less, adult; E86.0 Dehydration; I48.0 Paroxysmal atrial fibrillation; F03.90 Unspecified dementia, unspecified severity, without behavioral disturbance, psychotic disturbance, mood disturbance, and anxiety; F32.9 Major depressive disorder, single episode, unspecified; K21.9 Gastro-esophageal reflux disease without esophagitis; E78.5 Hyperlipidemia, unspecified; I10 Essential (primary) hypertension; E55.9 Vitamin D deficiency, unspecified; E87.6 Hypokalemia; F20.9 Schizophrenia, unspecified; D75.1 Secondary polycythemia; R13.19 Other dysphagia; H91.93 Unspecified hearing loss, bilateral; Z86.711 Personal history of pulmonary embolism; Z79.01 Long term (current) use of anticoagulants; R79.89 Other specified abnormal findings of blood chemistry
CPT/HCPCS: 36415; 36569; 51701; 71045; 80048; 80053; 81001; 83690; 83735; 84443; 85025; 85055; 86140; 87040; 87077; 87086; 87088; 93005; 96365; 99285; A9270; C1751; J0696; J3480

== ENCOUNTER 2019-08-17 20:16 | HOS | payer OTHER, MEDICARE, MEDICAID, SELFPAY ==
[2019-08-17 22:00] VITALS: BP 148/90; PULSE 110; RESP 18; TEMP 37.1; O2SAT 94
[2019-08-18] VITALS: BMI 17.6
--- NOTE | 2019-08-18 01:48 | ADMGEN ---
This patient, Faby Bobby, was admitted to [facility] Surg Room 330-01. Patient/family oriented to hospital policies and general routines including ID bracelet, bed and alarms, visiting hours, pain management, procedures, bathroom and other care routines, personal items, smoking policy, room service/diet, and visiting hours. Valuables list has been completed. Information on how to activate the Rapid Response Team has been discussed. Patient/Family are encouraged to report perceived risks to care and to ask questions if they do not understand what they are told or what they should do. Admitted for hospice care.
[2019-08-18 08:00] VITALS: BP 118/60; PULSE 93; RESP 18; TEMP 36.4; O2SAT 93
--- NOTE | 2019-08-18 11:54 | PM.IMHP ---
H&P: HPI History of Present Illness Chief complaint: Hospice Narrative: Faby Bobby is a 79 year old female longterm resident. Due to COVID-19 pneumonia she was admitted as and her son hospital 08/15. She was dehydrated with severe hypernatremia. In spite of empiric antibiotics IV fluids and supportive care she did not improved. She remained minimally responsive and was unable to eat or drink more than a tiny amount. At baseline she was able to walk short distances with a walker with assistance. Currently she is bed-bound and minimally responsive. She is blind and deaf. Her family opted to transition to comfort care with inpatient hospice on 08/16. Review of Systems Review of Systems: ROS unobtainable: Yes unobtainable due to medical condition PMFSH Past Medical History Medical History Atrial fibrillation Paroxysmal Current use of [facility] anticoagulation Dementia Depression GERD (gastroesophageal reflux disease) Hearing loss Hyperlipidemia Hypertension Hypokalemia Paroxysmal atrial fibrillation Pulmonary embolism Schizophrenia Suspected COVID-19 virus infection Vitamin D deficiency Surgical History Surgical History No pertinent past surgical history Patient unable to tell me whether not she has had surgery, and will not allow me to examine her completely. Family History Family History (Updated 08/18/19 @ 17:54 by Lopez Pena MD) Father No problems noted. Mother No problems noted. Other Unknown family medical history Social History Social History (Updated 08/18/19 @ 17:56 by Lopez Pena MD) Social History: The patient lives at [facility]. Unknown whether not the patient has ever been a smoker, drinker, or user of illicit substances. Smoking status: Unknown if ever smoked Alcohol intake: never Substance use: never Living arrangements: longterm Occupation/Education: retired Gender identity (if verbalized by the patient): Female Spiritual care concerns: No Meds Home Medications and Allergies Allergies Allergy/AdvReac Type Severity Reaction Status Date / Time No Known Allergies Allergy Verified 07/29/19 14:31 Vital Signs Vital Signs - 24 hr 08/17/19 22:00 Temperature 98.8 F Pulse Rate 110 H Respiratory Rate 18 Blood Pressure 148/90 H Pulse Oximetry 94 Exam Narrative: Exam Narrative: Frail elderly female lying in her hospital bed in no apparent distress Pupils round minimally reactive to light and equal. Sclera nonicteric. Oral mucosa somewhat dry. Neck no JVD. Chest with diminished breath sounds and scattered rhonchi Heart normal S1 and S2 with regular rate Extremities no edema cyanosis or clubbing Abdomen scaphoid with hypoactive bowel sounds soft and nontender Musculoskeletal with diffuse muscle wasting and generalized weakness but without gross deformity Cranial nerves without asymmetry to inspection Psychiatric she response to touch but not to sound or visual stimuli Assessment and Plan Assessment and plan (1) Palliative care by specialist: Code(s): Z51.5 - Encounter for palliative care Status: Acute Assessment and Plan: Requires general inpatient status due to uncontrolled dyspnea and restlessness requiring IV medication Continuous IV morphine Additional p.r.n. palliative medications as ordered Monitor symptoms and titrate to comfort (2) COVID-19 virus infection: Code(s): U07.1 - COVID-19 Status: Acute (3) Dysphagia: Qualifiers: Dysphagia type: unspecified Qualified Code(s): R13.10 - Dysphagia, unspecified Code(s): R13.10 - Dysphagia, unspecified Status: Acute (4) Acute renal failure: Qualifiers: Acute renal failure type: unspecified Qualified Code(s): N17.9 - Acute kidney failure, unspecified
--- NOTE | 2019-08-18 16:41 | PCDIET ---
Low BMI nutritional screen. Patient on appropriate diet, regular, and hospice status. No nutritional intervention needed at this time due to hospice unless requested.
[2019-08-18 22:00] VITALS: BP 135/76; PULSE 98; RESP 16; TEMP 36.8; O2SAT 94
[2019-08-19 10:00] VITALS: BP 157/88; PULSE 95; RESP 12; TEMP 36.3; O2SAT 97
--- NOTE | 2019-08-19 16:19 | PM.IMPN ---
Progress Note: A&P Assessment and Plan (1) Palliative care by specialist: Code(s): Z51.5 - Encounter for palliative care Status: Acute Assessment and Plan: Requires general inpatient status due to dyspnea and restlessness that require continuous IV medication for control Continuius IV morphine Additional p.r.n. palliative medications as ordered Monitor symptoms and titrate to comfort (2) COVID-19 virus infection: Code(s): U07.1 - COVID-19 Status: Acute (3) Dysphagia: Qualifiers: Dysphagia type: unspecified Qualified Code(s): R13.10 - Dysphagia, unspecified Code(s): R13.10 - Dysphagia, unspecified Status: Acute (4) Acute renal failure: Qualifiers: Acute renal failure type: unspecified Qualified Code(s): N17.9 - Acute kidney failure, unspecified Code(s): N17.9 - Acute kidney failure, unspecified Status: Acute (5) Hypernatremia: Code(s): E87.0 - Hyperosmolality and hypernatremia Status: Acute (6) Elevated LFTs: Code(s): R79.89 - Other specified abnormal findings of blood chemistry Status: Resolved (7) Paroxysmal atrial fibrillation: Code(s): I48.0 - Paroxysmal atrial fibrillation Status: Acute (8) Dementia: Qualifiers: Dementia type: unspecified type Dementia behavioral disturbance: without behavioral disturbance Qualified Code(s): F03.90 - Unspecified dementia without behavioral disturbance Code(s): F03.90 - Unspecified dementia without behavioral disturbance Status: Chronic (9) Hypertension: Qualifiers: Hypertension type: essential hypertension Qualified Code(s): I10 - Essential (primary) hypertension Code(s): I10 - Essential (primary) hypertension Status: Chronic Subjective Date/time seen: 08/19/19 11:45 Interval history: Nonverbal. Responds only to touch Review of Systems Review of Systems: ROS unobtainable: Yes unobtainable due to medical condition Exam Narrative: Exam Narrative: Frail elderly female lying in her hospital bed in no apparent distress Pupils round minimally reactive to light and equal. Sclera nonicteric. Oral mucosa somewhat dry. Neck no JVD. Chest with diminished breath sounds and scattered rhonchi Heart normal S1 and S2 with regular rate Extremities no edema cyanosis or clubbing Abdomen scaphoid with hypoactive bowel sounds soft and nontender Musculoskeletal with diffuse muscle wasting and generalized weakness but without gross deformity Cranial nerves without asymmetry to inspection Psychiatric she response to touch but not to sound or visual stimuli Objective Data Vital Signs Vital Signs: Vital Signs - 24 hr 08/18/19 22:00 08/19/19 10:00 Temperature 98.2 F 97.4 F L Pulse Rate 98 95 Respiratory Rate 16 12 Blood Pressure 135/76 157/88 H Pulse Oximetry 94 97 Intake/Output Intake/Output: Intake & Output 08/16/19 08/17/19 08/18/19 08/19/19 23:59 23:59 23:59 23:59 Intake Total 6.6 93.4 Balance 6.6 93.4 Meds/Results Medications: Active Medications Generic Name Dose Route Start Last Admin Trade Name Freq PRN Reason Stop Dose Admin Acetaminophen 650 mg 08/17/19 20:33 Tylenol Suppository RECTAL Q4H PRN Mild Pain (1-3) or Fever Artificial Tears 1 drop 08/17/19 20:33 Artificial Tears EACH EYE QID PRN Dry Eye(s) Bisacodyl 10 mg 08/17/19 20:33 Dulcolax Tab PO QAM PRN Constipation Glycopyrrolate 0.1 mg 08/17/19 20:33 Robinul Inj IV PUSH Q4H PRN Secretions Morphine Sulfate 50 mg/ Sodium 100 mls @ 1 mls/hr 08/17/19 20:50 08/19/19 07:56 Chloride IV CONT 0.5 mg/hr .Q24H NEHA 1 mls/hr Administration 0.5 MG/HR Lorazepam 1 mg 08/17/19 20:33 Ativan Inj IV PUSH Q4H PRN Anxiety Morphine Sulfate 1 mg 08/17/19 20:33 Morphine Sulfate Inj IV PUSH Q2H PRN Pain Prochlorperazine
[2019-08-19 22:00] VITALS: BP 154/86; PULSE 93; RESP 16; TEMP 36.6; O2SAT 97
[2019-08-20 10:39] VITALS: BP 157/73; PULSE 86; RESP 15; TEMP 36.3; O2SAT 95
[2019-08-20 14:00] VITALS: BP 156/79; PULSE 84; RESP 16; TEMP 36.7; O2SAT 94
--- NOTE | 2019-08-20 18:00 | PM.IMPN ---
Progress Note: A&P Assessment and Plan (1) Palliative care by specialist: Code(s): Z51.5 - Encounter for palliative care Status: Acute Assessment and Plan: Requires general inpatient status due to dyspnea and restlessness that require continuous IV medication for control Continuius IV morphine Additional p.r.n. palliative medications as ordered Monitor symptoms and titrate to comfort (2) COVID-19 virus infection: Code(s): U07.1 - COVID-19 Status: Acute (3) Dysphagia: Qualifiers: Dysphagia type: unspecified Qualified Code(s): R13.10 - Dysphagia, unspecified Code(s): R13.10 - Dysphagia, unspecified Status: Acute (4) Acute renal failure: Qualifiers: Acute renal failure type: unspecified Qualified Code(s): N17.9 - Acute kidney failure, unspecified Code(s): N17.9 - Acute kidney failure, unspecified Status: Acute (5) Hypernatremia: Code(s): E87.0 - Hyperosmolality and hypernatremia Status: Acute (6) Elevated LFTs: Code(s): R79.89 - Other specified abnormal findings of blood chemistry Status: Resolved (7) Paroxysmal atrial fibrillation: Code(s): I48.0 - Paroxysmal atrial fibrillation Status: Acute (8) Dementia: Qualifiers: Dementia type: unspecified type Dementia behavioral disturbance: without behavioral disturbance Qualified Code(s): F03.90 - Unspecified dementia without behavioral disturbance Code(s): F03.90 - Unspecified dementia without behavioral disturbance Status: Chronic (9) Hypertension: Qualifiers: Hypertension type: essential hypertension Qualified Code(s): I10 - Essential (primary) hypertension Code(s): I10 - Essential (primary) hypertension Status: Chronic Subjective Date/time seen: 08/20/19 18:00 Interval history: Nonverbal. Responds only to touch Review of Systems Review of Systems: ROS unobtainable: Yes unobtainable due to medical condition Exam Narrative: Exam Narrative: Frail elderly female lying in her hospital bed in no apparent distress Pupils round minimally reactive to light and equal. Sclera nonicteric. Oral mucosa somewhat dry. Neck no JVD. Chest with diminished breath sounds and scattered rhonchi Heart normal S1 and S2 with regular rate Extremities no edema cyanosis or clubbing Abdomen scaphoid with hypoactive bowel sounds soft and nontender Musculoskeletal with diffuse muscle wasting and generalized weakness but without gross deformity Cranial nerves without asymmetry to inspection Psychiatric she response to touch but not to sound or visual stimuli Objective Data Vital Signs Vital Signs: Vital Signs - 24 hr 08/19/19 22:00 08/20/19 10:39 08/20/19 14:00 Temperature 97.8 F 97.3 F L 98.0 F Pulse Rate 93 86 84 Respiratory Rate 16 15 16 Blood Pressure 154/86 H 157/73 H 156/79 H Pulse Oximetry 97 95 94 Intake/Output Intake/Output: Intake & Output 08/17/19 08/18/19 08/19/19 08/20/19 23:59 23:59 23:59 23:59 Intake Total 6.6 101.7 0 Output Total 200 250 Balance 6.6 -98.3 -250 Meds/Results Medications: Active Medications Generic Name Dose Route Start Last Admin Trade Name Freq PRN Reason Stop Dose Admin Acetaminophen 650 mg 08/17/19 20:33 Tylenol Suppository RECTAL Q4H PRN Mild Pain (1-3) or Fever Artificial Tears 1 drop 08/17/19 20:33 Artificial Tears EACH EYE QID PRN Dry Eye(s) Bisacodyl 10 mg 08/17/19 20:33 Dulcolax Tab PO QAM PRN Constipation Glycopyrrolate 0.1 mg 08/17/19 20:33 Robinul Inj IV PUSH Q4H PRN Secretions Morphine Sulfate 50 mg/ Sodium 100 mls @ 1 mls/hr 08/17/19 20:50 08/20/19 07:23 Chloride IV CONT Not Given .Q24H NEHA 0.5 MG/HR Lorazepam 1 mg 08/17/19 20:33 Ativan Inj IV PUSH Q4H PRN Anxiety Morphine Sulfate 1 mg 08/17/19 20:33 Morphine Sulfate Inj IV PUS
[2019-08-20 22:00] VITALS: BP 153/85; PULSE 93; RESP 18; TEMP 36.5; O2SAT 100
[2019-08-21 10:00] VITALS: BP 134/85; PULSE 103; RESP 18; TEMP 36.4; O2SAT 94
--- NOTE | 2019-08-21 10:34 | PM.IMPN ---
Subjective Date/time seen: 08/21/19 09:00 Objective Data Vital Signs Vital Signs: Vital Signs - 24 hr 08/20/19 10:39 08/20/19 14:00 08/20/19 22:00 Temperature 97.3 F L 98.0 F 97.7 F Pulse Rate 86 84 93 Respiratory Rate 15 16 18 Blood Pressure 157/73 H 156/79 H 153/85 H Pulse Oximetry 95 94 100 Intake/Output Intake/Output: Intake & Output 08/18/19 08/19/19 08/20/19 08/21/19 23:59 23:59 23:59 23:59 Intake Total 6.6 101.7 91.7 Output Total 200 700 Balance 6.6 -98.3 -608.3 Meds/Results Medications: Active Medications Generic Name Dose Route Start Last Admin Trade Name Freq PRN Reason Stop Dose Admin Acetaminophen 650 mg 08/17/19 20:33 Tylenol Suppository RECTAL Q4H PRN Mild Pain (1-3) or Fever Artificial Tears 1 drop 08/17/19 20:33 Artificial Tears EACH EYE QID PRN Dry Eye(s) Bisacodyl 10 mg 08/17/19 20:33 Dulcolax Tab PO QAM PRN Constipation Glycopyrrolate 0.1 mg 08/17/19 20:33 Robinul Inj IV PUSH Q4H PRN Secretions Morphine Sulfate 50 mg/ Sodium 100 mls @ 1 mls/hr 08/17/19 20:50 08/20/19 23:27 Chloride IV CONT 0.5 mg/hr .Q24H NEHA 1 mls/hr Administration 0.5 MG/HR Lorazepam 1 mg 08/17/19 20:33 Ativan Inj IV PUSH Q4H PRN Anxiety Morphine Sulfate 1 mg 08/17/19 20:33 Morphine Sulfate Inj IV PUSH Q2H PRN Pain Prochlorperazine Edisylate 10 mg 08/17/19 20:33 Compazine IV PUSH Q6H PRN Nausea And Vomiting
--- NOTE | 2019-08-21 12:30 | PM.DS ---
DS: Summary Hospital Course Reason for hospitalization: dyspnea Hospital Course: Admitted to inpatient hospice for sx management due to SARS-CoV-2 pneumonia. Medications titrated to comfort. Transitioned to PO/SL regimen. Returned to NH. Status at Discharge Functional status at discharge: bed bound Time Spent with Patient Time attestation: Total time spent providing and/or coordinating discharge services: Time spent: Greater than 30 minutes Discharge Plan Discharge Discharging Clinician: Lopez Pena Patient Disposition: Hospice - Medical Facility Activity: as tolerated Diet: as tolerated Stand Alone Forms: General Discharge Information Discharge Medications: New bisacodyl [Laxative (bisacodyl)] 5 mg Tablet,Delayed Release (Dr/Ec) 10 mg PO QAM PRN (Reason: Constipation) Qty: 4 RF: 0 Artificial Tears([id number]) 1-0.2-0.2 % Drops 1 drp LEFTEYE QID PRN (Reason: Dry Eye(S)) Qty: 5 RF: 0 morphine concentrate 100 mg/5 mL (20 mg/mL) solution See Rx Instructions .ROUTE .COMPLEX PRN (Reason: pain) Qty: 30 RF: 0 lorazepam 1 mg tablet 1 mg sublingual Q6H PRN (Reason: anxiety) Qty: 10 RF: 0 hyoscyamine sulfate 0.125 mg tablet,disintegrating 0.125 mg PO Q6H PRN (Reason: secretions) Qty: 10 RF: 0 prochlorperazine maleate 10 mg tablet 10 mg PO Q6H PRN (Reason: nausea and vomiting) Qty: 10 RF: 0 Date of admission: 08/17/19 20:16 Primary Care Provider: Jessica Mota Admitting Provider: Lopez Pena Interventions: Discharge Disposition Last Done: 08/21/19 16:12 Discharge Date/Time: 08/21/19 16:12 Attending physician on admission: Lopez Pena
== END 2019-08-21 16:12 | disposition hospice, inpatient (51) | DRG 177 ==
PROVIDERS: Admitting Provider Internal Medicine; PCP Family Medicine; Visit Provider Internal Medicine
DX: U07.1 COVID-19 (principal); J12.89 Other viral pneumonia; N17.9 Acute kidney failure, unspecified; Z51.5 Encounter for palliative care; H54.7 Unspecified visual loss; H91.90 Unspecified hearing loss, unspecified ear; F03.90 Unspecified dementia, unspecified severity, without behavioral disturbance, psychotic disturbance, mood disturbance, and anxiety; I10 Essential (primary) hypertension; I48.0 Paroxysmal atrial fibrillation; E78.5 Hyperlipidemia, unspecified; R13.10 Dysphagia, unspecified
CPT/HCPCS: A9270; J2270